=== PATIENT | female | born 1995 | race Two or more races ===

== ENCOUNTER 2025-02-03 14:59 | Outpatient (AMB) | payer MEDICAID, SELFPAY ==
--- NOTE | 2025-02-03 15:15 | AMB.OBINITIA ---
Vital Signs 02/03/25 15:20 Weight 90.378 kg Weight Measurement Method Standing Scale BP 117/70 Blood Pressure Source Automatic Cuff Blood Pressure Location Right Upper Arm Position Sitting Respiration 18 Pulse 87 Pulse Source Monitor Temp 98.0 F Temp Source Temporal Artery Scan Pulse Oximetry (%) 97 Oxygen Delivery Method Room Air Allergies/Home Meds Allergies & Medications Allergies No Known Allergies Allergy (Verified 02/03/25 15:25) Intake Visit Data Collection New Patient or Established: Established Patient (seen at [facility] within 3 years) Reason for Visit:: OB TRANSFER Seen by Clinical Staff ONLY (RN/MA): No District Medical Examiner Required: Yes District Medical Examiner's name/title: GRANT PAGE Do You Feel Safe at Home: Yes Authorities Contacted: N/A PCP or OBGYN visit in last 3 months: No Hx Now: Yes Are you currently on any form of Control: No Pain Present Currently: No Pain Scale Used: Mcgovern-Rowe/Numerical Pain scale:: 0 Smoking Status Smoking Status: Never smoker Questionnaires Covid-19 Vaccine Questionnaire Has patient been vacinated for Covid-19 Have you been vacinated for Covid-19: No PHQ-9 PHQ-2 Over the last 2 weeks, how often have you been bothered by any of the following problems? 1. Little interest or pleasure in doing things: not at all 2. Feeling down, depressed, or hopeless: not at all Total score: 0 PHQ-9 3. Trouble falling or staying asleep, or sleeping too much: Not at all 4. Feeling tired or having little energy: Not at all 5. Poor appetite or overeating: Not at all 6. Feeling bad about yourself - or that you are a failure or have let yourself or your family down: Not at all 7. Trouble concentrating on things, such as reading the newspaper or watching television: Not at all 8. Moving or speaking so slowly that other people could have noticed? - Or the opposite - being so fidgety or restless that you have been moving around a lot more than usual: not at all 9. Thoughts that you would be better off or of hurting yourself in some way: Not at all Total score: 0 If you checked off any problems, how difficult have these problems made it for you to do your work, take care of things at home, or get along with other people?: not difficult at all Source: Developed by Drs. Gian Rodgers, Mar Alexander, Hector Laurent and colleagues, with an educational eduardo from [employer]. 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 No CTX/LOF/VB, good FM. Hx prior CS, spinal surgery for lumbar disc pathology. Transferring care from [facility]. All prior records including 21w3d US from [facility] reviewed?no anomalies noted. FHR 136 bpm. Plan: Schedule repeat CS for ~03/14/25, confirm hospital date and inform pt at next visit. Follow-up in 2 weeks. Perform GBS swab at next visit. 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 Patient has a history of one previous section and spinal surgery for lumbar disc issues. Last menstrual period was 06/14/2024, with an estimated due date of 03/21/2025. A 21-week, 3-day ultrasound from [facility] was reviewed. heart rate auscultated at 136 bpm, which is within normal range. Patient denies any complications such as gestational diabetes. All records, labs, and ultrasounds have been reviewed and appear normal. Plan - Schedule for approximately March 14, 2025 (one week before due date) - Book exact date at hospital and inform patient at next visit - Follow-up appointment in 2 weeks - Perform culture swab at next appointment - Confirm and communicate dates at next appointment 1. Progress Reviewed gestational age, growth, and heart rate. Planned frequent visits (every 2 weeks until 36 weeks, then weekly). 2. Instructed patient to monitor movements and report decreases immediately. 3. Testing Counseled on routine third-trimester labs per guidelines. Discussed potential need for ultrasound or monitoring based on risk factors. 4. Preeclampsia Precaution Educated on preeclampsia signs: severe headache, vision changes, right upper quadrant pain, sudden swelling. Advised urgent reporting of symptoms and discussed blood pressure monitoring if high risk. 5. Labor Precautions Reviewed labor signs: regular contractions, pelvic pressure, back pain, bleeding, or fluid leakage. Instructed to seek immediate care for these symptoms. 6. Lifestyle and Delivery Preparation Reinforced vitamins, nutrition, and safe activity. Discussed plan, pain management, and . Advised on labor preparation (e.g., hospital bag) and expectations. 7. Psychosocial Support Assessed emotional well-being and offered resources for mental health or parenting support.
[2025-02-03 15:20] VITALS: BP 117/70; PULSE 87; RESP 18; TEMP 36.7; O2SAT 97
== END 2025-02-03 15:32 | disposition home or self-care (01) ==
LOC: HODSOBC 14:59
PROVIDERS: Supervising Provider Obstetrics & Gynecology; Visit Provider Obstetrics & Gynecology
DX: O09.293 Supervision of pregnancy with other poor reproductive or obstetric history, third trimester (principal); O34.219 Maternal care for unspecified type scar from previous cesarean delivery; Z3A.33 33 weeks gestation of pregnancy; Z98.890 Other specified postprocedural states
CPT/HCPCS: 99204; G0463

== ENCOUNTER 2025-02-23 10:36 | Outpatient (AMB) | payer MEDICAID, SELFPAY ==
[2025-02-23 10:52] VITALS: BP 113/70; PULSE 94; RESP 18; TEMP 36; O2SAT 97; BMI 27.5
--- NOTE | 2025-02-23 10:52 | AMB.OBVISIT ---
Vital Signs 02/23/25 10:52 Height 1.8 m Height Method Stated Weight 89.471 kg Weight Measurement Method Standing Scale BMI 27.5 BP 113/70 Blood Pressure Source Automatic Cuff Blood Pressure Location Left Upper Arm Position Sitting Respiration 18 Pulse 94 Pulse Source Monitor Temp 96.8 F Temp Source Oral Pulse Oximetry (%) 97 Oxygen Delivery Method Room Air Allergies/Home Meds Allergies & Medications Allergies No Known Allergies Allergy (Verified 03/16/25 11:01) Medication Reconciliation vitamin#30 30 mg iron-10 mg iron-folic acid 1 mg-omg3 capsule cap PO QDAY 03/16/25 [History] Intake Visit Data Collection New Patient or Established: Established Patient (seen at [facility] within 3 years) Reason for Visit:: CARE Consent obtained for Telemed Visit: No Seen by Clinical Staff ONLY (RN/MA): No Supervisor Cemetery Workers Required: Yes Supervisor Cemetery Workers's name/title: BG LAYTON Do You Feel Safe at Home: Yes Authorities Contacted: N/A PCP or OBGYN visit in last 3 months: Yes Hx Now: Yes Are you currently on any form of Control: No Pain Present Currently: No Pain Scale Used: Mcgovern-Rowe/Numerical Pain scale:: 0 Smoking Status Smoking Status: Never smoker Questionnaires Covid-19 Vaccine Questionnaire Has patient been vacinated for Covid-19 Have you been vacinated for Covid-19: Yes PHQ-9 PHQ-2 Over the last 2 weeks, how often have you been bothered by any of the following problems? 1. Little interest or pleasure in doing things: not at all 2. Feeling down, depressed, or hopeless: not at all Total score: 0 PHQ-9 3. Trouble falling or staying asleep, or sleeping too much: Not at all 4. Feeling tired or having little energy: Not at all 5. Poor appetite or overeating: Not at all 6. Feeling bad about yourself - or that you are a failure or have let yourself or your family down: Not at all 7. Trouble concentrating on things, such as reading the newspaper or watching television: Not at all 8. Moving or speaking so slowly that other people could have noticed? - Or the opposite - being so fidgety or restless that you have been moving around a lot more than usual: not at all 9. Thoughts that you would be better off or of hurting yourself in some way: Not at all Total score: 0 Source: Developed by Drs. Gian Rodgers, Mar Alexander, Hector Laurent and colleagues, with an educational eduardo from [employer]. 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 No CTX/LOF/VB, good FM. Hx prior CS, spinal surgery for lumbar disc pathology. Transferring care from [facility]. All prior records including 21w3d US from [facility] reviewed?no anomalies noted. FHR 136 bpm. Plan: Schedule repeat CS for ~03/14/25, confirm hospital date and inform pt at next visit. Follow-up in 2 weeks. Perform GBS swab at next visit. 02/23/25 <del>?</del> 36w 2d 89.471 kg 113/70 occasional cephalic 36 145 active Patient is 38 weeks , scheduled for on 03-16 (Sunday) at 39 weeks gestation. heart rate was noted to be 156 bpm, which is within normal range. Patient reports no contractions or other problems. movement is reported as active. A routine culture for Group B Streptococcus (GBS) was performed, which is standard procedure at this stage of . Plan - scheduled for 03-16 (Sunday) at 39 weeks gestation - Patient to register at 10:00 AM, procedure scheduled for 12:30 PM - Culture for the baby to be performed - Follow-up appointment scheduled in one week - Further instructions to be provided closer to the date YOON Calculator Estimated Delivery Date Method Current WG Current Estimate 03/21/25 LMP (Certain) 39w 2d Office Procedures OB Clinic LOC & Office Proc's Nursing/Assessment Patient Status: Established Patient OB Clinic Nursing Assessment: Medication Reconciliation, Update PMH in EMR and Vital Signs OB Clinic Coordination of Care: Complex Care and Chronic Disease 1-5, Consent,records obtained, informed consent, Education Simp Pt/Fam, 1 Ins Authorization, Lab and Imaging orders, Results/Orders obtained and Staff clarify orders Special Needs: Heart tones Miscellaneous Interventions: Culture Specimen Collection Established Patient Charge Established Patient Point Assignment: 165 Established Patient Point Charge: EP Level 5 (160-above) Assessment & Plan Diagnosis / Problem List (1) Maternal care for unspecified type scar from previous delivery: Status: Acute Plan Assessment Patient is 38 weeks , scheduled for on 03-16 (Sunday) at 39 weeks gestation. heart rate was noted to be 156 bpm, which is within normal range. Patient reports no contractions or other problems. movement is reported as active. A routine culture for Group B Streptococcus (GBS) was performed, which is standard procedure at this stage of . Plan - scheduled for 03-16 (Sunday) at 39 weeks gestation - Patient to register at 10:00 AM, procedure scheduled for 12:30 PM - Culture for the baby to be performed - Follow-up appointment scheduled in one week - Further instructions to be provided closer to the date
== END 2025-02-23 11:27 | disposition home or self-care (01) ==
LOC: HODSOBC 10:36
PROVIDERS: Supervising Provider Obstetrics & Gynecology; Visit Provider Obstetrics & Gynecology
DX: O09.293 Supervision of pregnancy with other poor reproductive or obstetric history, third trimester (principal); O34.219 Maternal care for unspecified type scar from previous cesarean delivery; Z3A.36 36 weeks gestation of pregnancy; Z36.85 Encounter for antenatal screening for Streptococcus B
CPT/HCPCS: 99215; G0463

== ENCOUNTER 2025-03-03 09:20 | Outpatient (AMB) | payer MEDICAID, SELFPAY ==
[2025-03-03 09:33] VITALS: BP 123/74; PULSE 89; RESP 18; TEMP 36.2; O2SAT 98; BMI 31.2
--- NOTE | 2025-03-03 09:33 | OBCLNT_ITS ---
Vital Signs 03/03/25 09:33 Height 1.7 m Height Method Stated Weight 90.435 kg Weight Measurement Method Standing Scale BMI 31.2 BP 123/74 Blood Pressure Source Automatic Cuff Blood Pressure Location Left Upper Arm Position Sitting Respiration 18 Pulse 89 Pulse Source Monitor Temp 97.2 F Temp Source Oral Pulse Oximetry (%) 98 Oxygen Delivery Method Room Air Allergies/Home Meds Allergies & Medications Allergies No Known Allergies Allergy (Verified 03/16/25 11:01) Medication Reconciliation vitamin#30 30 mg iron-10 mg iron-folic acid 1 mg-omg3 capsule cap PO QDAY 03/16/25 [History] Intake Visit Data Collection New Patient or Established: Established Patient (seen at [facility] within 3 years) Reason for Visit:: CARE Seen by Clinical Staff ONLY (RN/MA): No Bakery Sales Clerk Required: Yes Bakery Sales Clerk's name/title: BG LAYTON Do You Feel Safe at Home: Yes Authorities Contacted: N/A PCP or OBGYN visit in last 3 months: Yes Hx Now: Yes Are you currently on any form of Control: No Pain Present Currently: No Pain Scale Used: Mcgovern-Rowe/Numerical Pain scale:: 0 Smoking Status Smoking Status: Never smoker Questionnaires Covid-19 Vaccine Questionnaire Has patient been vacinated for Covid-19 Have you been vacinated for Covid-19: Yes PHQ-9 PHQ-2 Over the last 2 weeks, how often have you been bothered by any of the following problems? 1. Little interest or pleasure in doing things: not at all 2. Feeling down, depressed, or hopeless: not at all Total score: 0 PHQ-9 3. Trouble falling or staying asleep, or sleeping too much: Not at all 4. Feeling tired or having little energy: Not at all 5. Poor appetite or overeating: Not at all 6. Feeling bad about yourself - or that you are a failure or have let yourself or your family down: Not at all 7. Trouble concentrating on things, such as reading the newspaper or watching television: Not at all 8. Moving or speaking so slowly that other people could have noticed? - Or the opposite - being so fidgety or restless that you have been moving around a lot more than usual: not at all 9. Thoughts that you would be better off or of hurting yourself in some way: Not at all Total score: 0 Source: Developed by Drs. Gian Rodgers, Mar Alexander, Hector Laurent and colleagues, with an educational eduardo from [employer]. 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 No CTX/LOF/VB, good FM. Hx prior CS, spinal surgery for lumbar disc pathology. Transferring care from [facility]. All prior records including 21w3d US from [facility] reviewed?no anomalies noted. FHR 136 bpm. Plan: Schedule repeat CS for ~03/14/25, confirm hospital date and inform pt at next visit. Follow-up in 2 weeks. Perform GBS swab at next visit. 02/23/25 -?-?-?-?-?-?-?-?-?-?-?-?- 36w 2d 89.471 kg 113/70 occasional cephalic 36 145 active Patient is 38 weeks , scheduled for on 03-16 (Sunday) at 39 weeks gestation. heart rate was noted to be 156 bpm, which is within normal range. Patient reports no contractions or other problems. movement is reported as active. A routine culture for Group B Streptococcus (GBS) was performed, which is standard procedure at this stage of . Plan - scheduled for 03-16 (Sunday) at 39 weeks gestation - Patient to register at 10:00 AM, apple jonas scheduled for 12:30 PM - Culture for the baby to be performed - Follow-up appointment scheduled in one week - Further instructions to be provided cl oser to the date 03/03/25 -?-?-?-?-?-?-?-?-?-?-?-?- 37w 3d 90.435 kg 123/74 occasional cephalic 37 146 active 37-week routine visit. heart rate 146 bpm, within normal range. Patient reports no contractions or other issues. Patient inquired about [id number] syndrome exposure risk due to contact with an affected child; patient is asymptomatic. Group B Streptococcus (GBS) screening is due. - Follow-up appointment scheduled for 1 week - Group B Streptococcus (GBS) culture sw ab to be performed at next visit - Continue routine care YOON Calculator Estimated Delivery Date Method Current WG Current Estimate 03/21/25 LMP (Certain) 39w 2d Office Procedures OB Clinic LOC & Office Proc's Nursing/Assessment Patient Status: Established Patient OB Clinic Nursing Assessment: Medication Reconciliation, Update PMH in EMR and Vital Signs OB Clinic Coordination of Care: Complex Care and Chronic Disease 1-5, Consent,records obtained, informed consent, Education Simp Pt/Fam, 1 Ins Authorization, Lab and Imaging orders, Results/Orders obtained and Staff clarify orders Special Needs: Heart tones Established Patient Charge Established Patient Point Assignment: 150 Established Patient Point Charge: EP Level 4 (120-155) Assessment & Plan Diagnosis / Problem List (1) Maternal care for unspecified type scar from previous delivery: Status: Acute
== END 2025-03-03 09:44 | disposition home or self-care (01) ==
LOC: HODSOBC 09:20
PROVIDERS: Supervising Provider Obstetrics & Gynecology; Visit Provider Obstetrics & Gynecology
DX: O09.293 Supervision of pregnancy with other poor reproductive or obstetric history, third trimester (principal); O34.219 Maternal care for unspecified type scar from previous cesarean delivery; Z3A.37 37 weeks gestation of pregnancy
CPT/HCPCS: 99214; G0463

== ENCOUNTER 2025-03-13 09:56 | Outpatient (AMB) | payer MEDICAID, SELFPAY ==
[2025-03-13 10:07] VITALS: BP 109/70; PULSE 89; RESP 17; TEMP 36.4; O2SAT 96; BMI 31.7
--- NOTE | 2025-03-13 10:07 | OBCLNT_ITS ---
Vital Signs 03/13/25 10:07 Height 1.7 m Height Method Measured Weight 91.682 kg Weight Measurement Method Standing Scale BMI 31.7 BP 109/70 Blood Pressure Source Automatic Cuff Blood Pressure Location Right Upper Arm Position Sitting Respiration 17 Pulse 89 Pulse Source Monitor Temp 97.5 F Temp Source Temporal Artery Scan Pulse Oximetry (%) 96 Oxygen Delivery Method Room Air Allergies/Home Meds Allergies & Medications Allergies No Known Allergies Allergy (Verified 03/16/25 11:01) Medication Reconciliation vitamin#30 30 mg iron-10 mg iron-folic acid 1 mg-omg3 capsule cap PO QDAY 03/16/25 [History] Intake Visit Data Collection New Patient or Established: Established Patient (seen at [facility] within 3 years) Reason for Visit:: C Consent obtained for Telemed Visit: No Seen by Clinical Staff ONLY (RN/MA): No Beam House Inspector Required: No Do You Feel Safe at Home: Yes Authorities Contacted: N/A PCP or OBGYN visit in last 3 months: Yes Date of Last PCP or OBGYN visit: 03/03/25 Hx Now: Yes Are you currently on any form of Control: No Pain Present Currently: No Pain Scale Used: Mcgovern-Rowe/Numerical Pain scale:: 0 Smoking Status Smoking Status: Never smoker Questionnaires Covid-19 Vaccine Questionnaire Has patient been vacinated for Covid-19 Have you been vacinated for Covid-19: Yes PHQ-9 PHQ-2 Over the last 2 weeks, how often have you been bothered by any of the following problems? 1. Little interest or pleasure in doing things: not at all PHQ-9 3. Trouble falling or staying asleep, or sleeping too much: Not at all 4. Feeling tired or having little energy: Not at all 5. Poor appetite or overeating: Not at all 6. Feeling bad about yourself - or that you are a failure or have let yourself or your family down: Not at all 7. Trouble concentrating on things, such as reading the newspaper or watching television: Not at all 8. Moving or speaking so slowly that other people could have noticed? - Or the opposite - being so fidgety or restless that you have been moving around a lot more than usual: not at all 9. Thoughts that you would be better off or of hurting yourself in some way: Not at all If you checked off any problems, how difficult have these problems made it for you to do your work, take care of things at home, or get along with other people?: not difficult at all Source: Developed by Drs. Gian Rodgers, Mar Alexander, Hector Laurent and colleagues, with an educational eduardo from [employer]. 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 No CTX/LOF/VB, good FM. Hx prior CS, spinal surgery for lumbar disc pathology. Transferring care from [facility]. All prior records including 21w3d US from [facility] reviewed?no anomalies noted. FHR 136 bpm. Plan: Schedule repeat CS for ~03/14/25, confirm hospital date and inform pt at next visit. Follow-up in 2 weeks. Perform GBS swab at next visit. 02/23/25 -?-?-?-?-?-?-?-?-?-?-?-?- 36w 2d 89.471 kg 113/70 occasional cephalic 36 145 active Patient is 38 weeks , scheduled for on 03-16 (Sunday) at 39 weeks gestation. heart rate was noted to be 156 bpm, which is within normal range. Patient reports no contractions or other problems. movement is reported as active. A routine culture for Group B Streptococcus (GBS) was performed, which is standard procedure at this stage of . Plan - scheduled for 03-16 (Sunday) at 39 weeks gestation - Patient to register at 10:00 AM, proce dure scheduled for 12:30 PM - Culture for the baby to be performed - Follow-up appointment scheduled in one week - Further instructions to be provided cl oser to the date 03/03/25 -?-?-?-?-?-?-?-?-?-?-?-?- 37w 3d 90.435 kg 123/74 occasional cephalic 37 146 active 37-week routine visit. heart rate 146 bpm, within normal range. Patient reports no contractions or other issues. Patient inquired about yvei-buin-vbbkb syndrome exposure risk due to contact with an affected child; patient is asymptomatic. Group B Streptococcus (GBS) screening is due. - Follow-up appointment scheduled for 1 week - Group B Streptococcus (GBS) culture sw ab to be performed at next visit - Continue routine care 03/13/25 -?-?-?-?-?-?-?-?-?-?-?-?- 38w 6d 91.682 kg 109/70 occasional cephalic 39 162 active Patient is scheduled for a on March 16 at 12:30 PM. No contractions reported. heart rate is 162 bpm, which is within normal range. Patient appears stable and prepared for the upcoming procedure. - Scheduled on March 16 - Patient to check into hospital at 10:0 0 AM - No food or drink after midnight (8 zoe rs before procedure) - [facility] and inform desk staff about C- section - Procedure scheduled for 12:30 PM - No further appointments at the clinic; next encounter will be at the hospital - Patient advised to come to hospital if experiencing painful contractions before scheduled date YOON Calculator Estimated Delivery Date Method Current WG Current Estimate 03/21/25 LMP (Certain) 39w 2d Office Procedures OB Clinic LOC & Office Proc's Nursing/Assessment Patient Status: Established Patient OB Clinic Nursing Assessment: Medication Reconciliation, Update PMH in EMR and Vital Signs OB Clinic Coordination of Care: Complex Care and Chronic Disease 1-5 and Consent,records obtained, informed consent Special Needs: Heart tones Established Patient Charge Established Patient Point Assignment: 90 Established Patient Point Charge: EP Level 3 (80-115) Assessment & Plan Diagnosis / Problem List (1) Maternal care for unspecified type scar from previous delivery: Status: Acute (2) Supervision of high risk , unspecified, third trimester: Status: Acute
== END 2025-03-13 10:54 | disposition home or self-care (01) ==
LOC: HODSOBC 09:56
PROVIDERS: Supervising Provider Obstetrics & Gynecology; Visit Provider Obstetrics & Gynecology
DX: O09.293 Supervision of pregnancy with other poor reproductive or obstetric history, third trimester (principal); O34.219 Maternal care for unspecified type scar from previous cesarean delivery; Z3A.38 38 weeks gestation of pregnancy
CPT/HCPCS: 99213; G0463

== ENCOUNTER 2025-03-16 10:17 | Inpatient (IN) | payer MEDICAID, SELFPAY ==
[2025-03-16] VITALS (49 sets, daily range): BP systolic 0–129; BP diastolic 0–78; PULSE 69–90; RESP 12–24; TEMP 36.6–36.8; O2SAT 93–99; BMI 31.4
[2025-03-16 11:38] LABS: Basophils # (Auto) 0.0 Thou/mm3 (0.0-0.2); Basophils % (Auto) 0 % (0-2.5); Eosinophils # (Auto) 0.0 Thou/mm3 (0.0-0.5); Eosinophils % (Auto) 0 % (0-10); Hematocrit 39.9 % (36.0-46.0); Hemoglobin 13.9 g/dL (12.0-16.0); Immature Granulocytes Auto 0.08 Thou/mm3 (0.00-0.00); Lymphocytes # (Auto) 1.4 Thou/mm3 (1.0-4.8); Lymphocytes % (Auto) 15 % (10-50); Mean Corpuscular HGB Conc 34.8 g/dl (31.0-37.0); Mean Corpuscular Hemoglobin 29.7 pg (25.0-35.0); Mean Corpuscular Volume 85 fL (80-100); Monocytes # (Auto) 0.5 Thou/mm3 (0.0-0.8); Monocytes % (Auto) 6 % (0-12); Neutrophils # (Auto) 7.0 Thou/mm3 (1.8-7.7); Neutrophils % (Auto) 78 % (37-80); Nucleated Red Blood Cell # 0.00 Thou/mm3 (0.00-0.00); Nucleated Red Blood Cell % 0 /100 WBC (0); Platelet Count 190 Thou/mm3 (140-440); RDW Standard Deviation 42.3 fL (36.4-46.3); Red Blood Count 4.68 Miln/mm3 (4.00-5.20); White Blood Count 9.0 Thou/mm3 (3.6-11.0)
[2025-03-16 12:13] LABS: Syphilis Nonreactive (Nonreactive)
--- NOTE | 2025-03-16 12:27 | ESHP_ITS ---
Documentation for date of: 03/16/25 OB Labor/Induct. HPI History of Present Illness Chief complaint: Repeat : 2 Para: 1 History of sections: Yes (2021) Date of last menstrual period: 06/14/24 YOON: 03/21/25 Gestational age based on last menstrual period: 39 History of present illness: Donna Suazo is a 29-year-old [id number] at 39 weeks and 2 days gestation, presenting for scheduled repeat . Her estimated due date is March 21, 2025, based on her last menstrual period of June 14, 2024. She has a history of one previous in 2021 and spinal surgery for a herniated lumbar disc. Ms. Suazo transferred her care to this practice from [facility]. Her records have been reviewed. On presentation today, she reports no complaints and adequate movements. The patient is being admitted for her planned repeat . Medical History: - Herniated lumbar disc requiring spinal surgery Surgical History: - in 2021 - Spinal surgery for herniated lumbar disc Obstetric History: - GPAL: G2 T1 L1 Labs Labs: Positive: Rubella Titre, Negative: RPR, Hepatitis B, HIV and Group Beta Strep and Unknown: Chlamydia, Gonorrhea, Herpes Type 1, Herpes Type 2 and Covid-19 Past Medical History Surgical History SURGICAL: Positive Section (2021) Meds Home Medications and Allergies Home Medications ?Medication ?Instructions ?Recorded ?Confirmed ?Type vitamin#30 30 mg iron-10 cap PO QDAY 03/16/25 History mg iron-folic acid 1 mg-omg3 capsule Allergies Allergy/AdvReac Type Severity Reaction Status Date / Time No Known Allergies Allergy Verified 03/16/25 11:01 OB Exam Physical Exam Vital signs: Pulse BP Pulse Ox 82 115/68 98 03/16/25 12:25 03/16/25 12:25 03/16/25 12:26 Constitutional Constitutional: no acute distress Routine HEENT Exam Head: Present normocephalic and atraumatic Eye: Present EOMI and PERRL ENT: Present mucous membranes moist Routine Neck Exam Neck: Present supple and trachea midline Routine Cardiovascular Exam Cardiovascular: Present RRR Routine Abdominal Exam Abdominal: Present soft and normoactive bowel sounds Detailed Labor and Delivery Exam Dilation (cm): 0 Baseline heart rate: 140 monitor accelerations: 15x15 monitor decelerations: None Routine Extremities Exam Extremities: Present full ROM Routine Skin Exam Skin: Present intact, dry and warm Routine Neurological Exam Neurological: Present alert, oriented X3 and CN II-XII intact Routine Psychiatric Exam Psychiatric: Present normal affect and normal thought process OB Results Labs 03/16/25 10:50 Labs: Short CBC 03/16/25 Range/Units 10:50 WBC 9.0 (3.6-11.0) Thou/mm3 Hgb 13.9 (12.0-16.0) g/dL Hct 39.9 (36.0-46.0) % Plt Count 190 (140-440) Thou/mm3 OB Assessment & Plan Assessment and Plan (1) Maternal care for unspecified type scar from previous delivery: Status: Acute Assessment and plan: Repeat Section Assessment: Patient is a 29-year-old at 39 weeks 2 days gestation based on LMP of 06/14/2024, with an YOON of 03/21/2025. She has a history of one previous in 2021 and spinal surgery for a herniated lumbar disc. The patient reports adequate movements and has no current complaints. Given her obstetrical history and current gestational age, a repeat is indicated. Plan: - Admit to inpatient status for repeat - Initiate LR at 125 cc/hr - Order pre-operative labs: CBC, Type and Screen, RPR - Administer pre-op medications: Pepcid, Bicitra, and Ancef - Perform repeat low transverse under planned spinal anesthesia - Implement continuous monitoring until - Informed consent for the procedure reviewed with the patient (2) Supervision of high risk , unspecified, third trimester: Status: Acute
[2025-03-16] MEDS: ceFAZolin/D5W 2 GM IV 2 GM/100 ML BAG IV (12:42)
[2025-03-16] MEDS: METOCLOPRAMIDE INJ 5 MG/ML VIAL 2 ML 10 MG IVP (12:42)
[2025-03-16] MEDS: RINGERS LACTATED 1000 ML 1,000 ML 100 ML IV (12:42)
[2025-03-16] MEDS: FAMOTIDINE INJ 10 MG/ML VIAL 2 ML 20 MG IV (12:42)
--- NOTE | 2025-03-16 12:52 | PD.GYNPROC ---
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 The patient was brought to the operating room and identified with two patient identifiers. She was placed in the supine position, and spinal anesthesia was administered. After confirming adequate anesthesia, the abdomen and perineum were prepped and draped in the usual sterile fashion. A Braxton catheter was inserted for continuous bladder drainage. A low transverse (Pfannenstiel) skin incision was made using a scalpel and carried through subcutaneous tissue to the rectus fascia. The previous scar was identified and excised in its entirety. The fascia was incised transversely and dissected off the rectus muscles both superiorly and inferiorly. The rectus bellies were in the midline, and the peritoneum was entered bluntly with the surgeon?s finger. The peritoneal opening was extended to allow adequate exposure. An Ian O-ring retractor was placed for optimal visualization. Upon entering the abdominal cavity, extensive adhesions were noted between the uterus, omentum, and surrounding peritoneal structures. These were carefully lysed using sharp and blunt dissection. Significant oozing was noted from the adhesiolysis sites, which required meticulous hemostasis with electrocautery and irrigation. The lower uterine segment was palpated, and the bladder flap was reflected inferiorly. A low transverse uterine incision (Kal Cárdenas) was made with a scalpel and extended bluntly. The amniotic membranes were ruptured, and clear fluid was released. The fetus was in vertex presentation. A Mityvac vacuum device was applied to the head. Vacuum-assisted delivery was accomplished without any pop-offs. A single loop of nuchal cord was noted and reduced. The shoulders and body were delivered smoothly with gentle fundal pressure. The umbilical cord was doubly clamped and cut, and the infant was handed to the awaiting team. Cord gases were obtained. The placenta was delivered with gentle traction on the cord. The uterine cavity was cleared of membranes and clots. The hysterotomy angles were secured with Allis clamps. Persistent bleeding was noted from the left uterine artery. Hemostasis was achieved with placement of compression sutures using 0 Vicryl. The uterine incision was closed in two layers using #1 Monocryl: the first layer was a running locked suture to approximate the myometrium, and the second layer imbricated the serosa and myometrium. Hemostasis was confirmed. The Ian retractor was removed. Peritoneal edges and rectus muscles were reapproximated. Rectus fascia was closed with running 0 Vicryl. The subcutaneous tissue was irrigated with warm saline, and bleeding points were cauterized using Bovie electrocautery. Subcutaneous tissue was approximated with 3-0 Vicryl. The skin was closed using- Monocryl in a subcuticular fashion. A sterile dressing was applied. The patient was cleaned, undraped, and transferred to the recovery room in stable and awake condition. She tolerated the procedure well. All counts were correct ?2. Estimated blood loss (ml): 700 Complications: none Surgical staff Operation Date: 03/16/25 12:45 <No data on this case meets the specified criteria> Diagnosis Discharge Diagnosis (1) Maternal care for unspecified type scar from previous delivery: Status: Acute Problem List Completed Was Problem List Reviewed/Reconciled?: Yes
--- NOTE | 2025-03-16 13:51 | OBDSUM_ITS ---
Data (Gooden) Data Hx Section: Yes (2021) : 3 Delivery Data (Gooden) Labor Data Induction/Augmentation Agent: None ROM date: 03/16/25 ROM time: 12:45 Amniotic membrane rupture type: Spontaneous Amniotic fluid description: Clear Delivery Data Onset of labor date: 03/16/25 Onset of labor time: 13:17 Complete dilation date: 03/16/25 Complete dilation time: 13:17 delivery date: 03/16/25 delivery time: 13:17 Placenta delivery date: 03/16/25 Placenta delivery time: 13:18 Stage 1 total time: Labor - Stage 1 Duration 0 minutes Delivered by: Micheal Delivery nurse: [email or web address] [place] nurse: [email or web address] Telemarketing Supervisor at delivery: No Support person(s) at delivery: FOB Other staff at delivery: REEMA Ortiz CRNA Delivery Method Delivery method: Low Transverse Presentation: Vertex Anesthesia Type Anesthesia Type: Spinal Anesthesia type: Spinal Placenta Placenta delivery description: Manual Removal Cord blood sent to lab: Yes cord blood collection: Cord Blood Type Episiotomy Episiotomy description: None Umbilical Cord cord description: 3 Vessels [place] Data (Gooden) Data order: 1 [place]'s gender: Male Identification band number: [id number] weight (gms): 4460 g Weight (pounds): 9 lbs and 13.3 ozs [place] length: 57.15 cm 1 minute: 8 5 minutes: 9
[2025-03-16 16:13] LABS: Chlamydia trachomatis PCR Negative (Not Detect); Neisseria Gonorrhoeae DNA PCR Negative (Not Detect); Trichomonas Negative (Negative)
[2025-03-16] MEDS: OXYTOCIN in NS 20 units 20 UNIT/1,000 ML BAG 125 UNIT IV (18:05)
[2025-03-17] MEDS: HYDROcodone/APAP 5/325 TABLET 2 TAB PO ×2 (00:41→17:50)
[2025-03-17] MEDS: RINGERS LACTATED 1000 ML 1,000 ML 125 ML IV (02:44)
[2025-03-17 04:00] VITALS: BP 103/60; PULSE 66; RESP 18; TEMP 37.2; O2SAT 96
[2025-03-17 06:30] LABS: Basophils # (Auto) 0.0 Thou/mm3 (0.0-0.2); Basophils % (Auto) 0 % (0-2.5); Eosinophils # (Auto) 0.0 Thou/mm3 (0.0-0.5); Eosinophils % (Auto) 0 % (0-10); Hematocrit 35.6 % (36.0-46.0); Hemoglobin 11.9 g/dL (12.0-16.0); Immature Granulocytes Auto 0.07 Thou/mm3 (0.00-0.00); Lymphocytes # (Auto) 1.6 Thou/mm3 (1.0-4.8); Lymphocytes % (Auto) 15 % (10-50); Mean Corpuscular HGB Conc 33.4 g/dl (31.0-37.0); Mean Corpuscular Hemoglobin 29.2 pg (25.0-35.0); Mean Corpuscular Volume 87 fL (80-100); Monocytes # (Auto) 0.8 Thou/mm3 (0.0-0.8); Monocytes % (Auto) 8 % (0-12); Neutrophils # (Auto) 8.7 Thou/mm3 (1.8-7.7); Neutrophils % (Auto) 77 % (37-80); Nucleated Red Blood Cell # 0.00 Thou/mm3 (0.00-0.00); Nucleated Red Blood Cell % 0 /100 WBC (0); Platelet Count 181 Thou/mm3 (140-440); RDW Standard Deviation 43.1 fL (36.4-46.3); Red Blood Count 4.08 Miln/mm3 (4.00-5.20); White Blood Count 11.3 Thou/mm3 (3.6-11.0)
[2025-03-17] MEDS: KETOROLAC INJ 30 MG/ML VIAL IVP (08:07)
[2025-03-17] MEDS: SIMETHICONE 80 MG CHEW PO (08:07)
[2025-03-17] MEDS: DOCUSATE SOD 100 MG CAPSULE PO (08:07)
[2025-03-17] MEDS: Milk Of Magnesia Susp 30 ML UDC PO (08:07)
[2025-03-17 08:20] VITALS: BP 98/58; PULSE 68; RESP 18; TEMP 36.8; O2SAT 99
--- NOTE | 2025-03-17 10:48 | PD.LDPPPRG ---
Subjective Subjective Interval history: Delivery type: Patient doing well this morning. No acute complaints. Ambulating, tolerating p.o. and voiding without difficulty. HTN/Pre-Eclampsia screen: No chest pain, shortness of breath, headache, visual changes, epigastric or right upper quadrant pain. Breast-feeding, lochia diminishing. Bowel: Flatus+/ BM+ Exam Vital Signs Temp Pulse Resp BP Pulse Ox O2 Del Method 98.3 F 68 18 98/58 L 99 Room Air 03/17/25 08:20 03/17/25 08:20 03/17/25 08:20 03/17/25 08:20 03/17/25 08:20 03/17/25 08:20 Constitutional Constitutional: no acute distress Routine HEENT Exam Head: Present normocephalic and atraumatic Eye: Present EOMI and PERRL ENT: Present mucous membranes moist Routine Neck Exam Neck: Present supple and trachea midline Routine Respiratory Exam Respiratory: Present chest non-tender, lungs clear, normal breath sounds and no resp distress Routine Cardiovascular Exam Cardiovascular: Present RRR Routine Abdominal Exam Abdominal: Present soft and normoactive bowel sounds Routine Extremities Exam Extremities: Present full ROM Routine Skin Exam Skin: Present intact, dry and warm Routine Neurological Exam Neurological: Present alert, oriented X3 and CN II-XII intact Routine Psychiatric Exam Psychiatric: Present normal affect and normal thought process Objective Labs 03/17/25 05:20 Labs: Laboratory Results - last 24 hr 03/16/25 03/16/25 03/17/25 10:50 11:59 05:20 WBC 9.0 11.3 H RBC 4.68 4.08 Hgb 13.9 11.9 L D Hct 39.9 35.6 L MCV 85 87 MCH 29.7 29.2 MCHC 34.8 33.4 RDW Std Deviation 42.3 43.1 Plt Count 190 181 Neut % (Auto) 78 77 Lymph % (Auto) 15 15 [place] % (Auto) 6 8 Eos % (Auto) 0 0 Baso % (Auto) 0 0 Neut # (Auto) 7.0 8.7 H Lymph # (Auto) 1.4 1.6 [place] # (Auto) 0.5 0.8 Eos # (Auto) 0.0 0.0 Baso # (Auto) 0.0 0.0 Immature Gran # (Auto) 0.08 H 0.07 H Absolute Nucleated RBC 0.00 0.00 Immature Gran % 1 H 1 H Nucleated RBC % 0 0 Syphilis Serology Nonreactive Chlam trachomat DNA PCR Negative N.gonorrhoeae DNA (PCR) Negative Trichomonas DNA Probe Negative Blood Type O Positive Antibody Screen NEGATIVE Blood Bank Wristband ID Yes Assessment & Plan Problem List (1) Maternal care for unspecified type scar from previous delivery: Status: Acute Assessment and plan: 1. Continue routine /post-op care 2. Labs reviewed, cbc appropriate 3. Remove dressing/Braxton 4. Encourage to ambulate, shower 5. Encourage PO intake, breast feeding Time Spent With Patient Time: Total time spent is greater than 50% in coordination of care (as documented) at patient's floor/unit and/or counseling patient:
[2025-03-17 12:00] VITALS: BP 102/61; PULSE 68; RESP 18; TEMP 37.2; O2SAT 98
[2025-03-17 20:00] VITALS: BP 97/60; PULSE 84; RESP 16; TEMP 36.8; O2SAT 97
[2025-03-17] MEDS: IBUPROFEN TAB 400 MG TABLET 800 MG PO (23:26)
[2025-03-18 04:00] VITALS: BP 116/72; PULSE 72; RESP 16; TEMP 37.1; O2SAT 99
[2025-03-18 07:25] VITALS: BP 103/64; PULSE 75; RESP 18; TEMP 36.7; O2SAT 98
[2025-03-18] MEDS: DOCUSATE SOD 100 MG CAPSULE PO (07:29)
[2025-03-18] MEDS: HYDROcodone/APAP 5/325 TABLET 1 TAB PO ×2 (07:29→13:05)
[2025-03-18] MEDS: IBUPROFEN TAB 400 MG TABLET 800 MG PO (10:20)
--- NOTE | 2025-03-18 10:32 | CHAP ---
Patient was visited by a Spiritual Care Volunteer on 03/17/2025 between 0900 and 1140 and received comfort, encouragement and/or prayer. Patient also received a blessing on infant and family.
--- NOTE | 2025-03-18 12:39 | ESPR_ITS ---
Subjective Subjective Interval history: The patient is a 29-year-old G2 now P2002 status post repeat x [address] Burton. She is postop day 2 today. She is doing quite well. She delivered 03/16 at 1317. Of note she is [place]-speaking only and her entire history and physical exam is obtained with a mortgage loan underwriter on the mortgage loan underwriter service line. Today patient is resting comfortably she is breast and bottlefeeding she denies heavy bleeding she is voiding tolerating a general diet passing flatus and ambulating. She is ready for discharge. Predelivery hemoglobin 13.9 postdelivery hemoglobin 11.9. Exam Vital Signs Temp Pulse Resp BP Pulse Ox O2 Del Method 98.0 F 75 18 103/64 98 Room Air 03/18/25 07:25 03/18/25 07:25 03/18/25 07:25 03/18/25 07:25 03/18/25 07:25 03/18/25 07:25 Narrative Exam Patient is alert and oriented x 3 in no apparent distress. Fundus is firm at umbilicus incision is clean dry and intact extremities show no significant edema or erythema. Objective Labs 03/17/25 05:20 Assessment & Plan Problem List (1) care following delivery: Problem details: The patient was instructed no heavy lifting, intercourse, tampons or douching for 6 weeks. No heavy exercise x 6 weeks. Follow-up with Dr. Burton in 1 to 2 weeks. Status: Acute Time Spent With Patient Time: Total time spent is greater than 50% in coordination of care (as documented) at patient's floor/unit and/or counseling patient: Time with patient: less than 15 minutes
--- NOTE | 2025-03-18 12:43 | PD.LDDS ---
DS: Providers Provider Date of admission: 03/16/25 10:17 Primary care physician: Maulik Richardson MD Admitting Provider: Óscar Burton MD Attending Provider on Admission: Óscar Burton MD Consults: 03/16/25 13:46 Referral Routine Comment: Attending Provider on DC: Nubia Malagon MD ([facility]) Discharging Provider: Nubia Malagon MD ([facility]) Anticipated date of discharge: 03/18/25 DS: Diagnosis Discharge Diagnosis (1) care following delivery: Status: Acute Assessment & Plan: Discharge instructions given including no heavy lifting intercourse tampons douching or heavy exercise x 6 weeks. Follow-up with Dr. Burton in 1 to 2 weeks. Follow-up with Dr. Angelo in 4 weeks after that. Problem List Completed Was Problem List Reviewed/Reconciled?: Yes Summary/Hosp Course Brief History: Donna Suazo is a 29-year-old [id number] at 39 weeks and 2 days gestation, presenting for scheduled repeat . Her estimated due date is March 21, 2025, based on her last menstrual period of June 14, 2024. She has a history of one previous in 2021 and spinal surgery for a herniated lumbar disc. Ms. Suazo transferred her care to this practice from [facility]. Her records have been reviewed. On presentation today, she reports no complaints and adequate movements. The patient is being admitted for her planned repeat . Medical History: - Herniated lumbar disc requiring spinal surgery Surgical History: - in 2021 - Spinal surgery for herniated lumbar disc Obstetric History: - GPAL: G2 T1 L1 The patient was admitted by Dr. Burton. Please see H&P for further details. She underwent an uncomplicated repeat by Dr. Burton 03/16 around 1317 in the afternoon. Please see op report for further details. The patient had an uncomplicated postoperative course. She went home postoperative day #2 in stable condition. Her predelivery hemoglobin was 13.9. Her post delivery hemoglobin is 11.9. Her vital signs were stable. Peripartum Data Delivery Method: Low Transverse Episiotomy Description: None Procedures: Procedures Operation Date: 03/16/25 12:45 Actual Procedure Side Surgeon p in OB Óscar Burton MD complications: none Status at Discharge Cognitive/behavioral status at discharge: Patient is alert and oriented x 3 in no apparent distress. Fundus is firm nontender at umbilicus incision clean dry and intact extremities show no cyanosis clubbing or edema Functional status at discharge: independent ambulation Overall status at discharge: patient is progressing back to baseline Time Spent with Patient Time attestation: Total time spent providing and/or coordinating discharge services: Time spent: Less than 30 minutes Specific discharge activities: Pelvic rest x 6 weeks. No heavy lifting intercourse tampons douching x 6 weeks. No heavy exercise x 6 weeks Exam Vital Signs Temp Pulse Resp BP Pulse Ox O2 Del Method 98.0 F 75 18 103/64 98 Room Air 03/18/25 07:25 03/18/25 07:25 03/18/25 07:25 03/18/25 07:25 03/18/25 07:25 03/18/25 07:25 Narrative Exam Patient is alert and oriented x 3 in no apparent distress fundus is firm nontender extremities show no cyanosis, edema Discharge Plan Plan Patient Disposition: HOME (Self Care) Disposition Comment: Stable Patient condition on transfer: Stable Prescriptions/Referrals Prescriptions/Med Rec: New acetaminophen 325 mg Tablet 650 mg PO Q6HR PRN (Reason: Patient rated pain of 3) Qty: 60 0RF hydrocodone-acetaminophen 5-325 mg Tablet 2 tab PO Q6HR MDD 5 PRN (Reason: Patient rated pain 9 to 10) Qty: 20 0RF ibuprofen 400 mg Tablet 800 mg PO Q8HR PRN (Reason: Pain Scale 4-6 (Moderate) Qty: 60 0RF docusate sodium 100 mg Capsule 100 mg PO QDAY Qty: 60 0RF Continued PNV [id number] 30 mg iron-10 mg iron-1 mg capsule PO QDAY Referrals: Maulik Richardson MD [Primary Care Provider] - Patient/Caregiver Discharge Instructions Discharge Activity: activity as tolerated Other Discharge Activity Instructions:: Pelvic rest x 6 weeks no intercourse tampons douching intercourse x 6 weeks no heavy exercise x 6 weeks Other Discharge Diet Instructions: General Diet as tolerated Education Materials: : Caring for Yourself, C Section Dc, Change Expect Parents Print Language: [place] Activity Restrictions/Additional Instructions: Call with any heavy bleeding fevers chills or depression., Stand Alone Forms: Rain Award Info., Patient Portal Info Letter Discharge Order Discharge Orders: Discharge (Routine); Ordered 03/18/25 Ordered By: Nubia Malagon ([facility]) Planned Discharge Date 03/18/25
== END 2025-03-18 13:15 | disposition home or self-care (01) | DRG 540 ==
LOC: S4SX 13:19 → S4NX 13:20
PROVIDERS: Admitting Provider Obstetrics & Gynecology; PCP Family Medicine; Visit Provider Obstetrics & Gynecology
PROC: 10D00Z1 Extraction of Products of Conception, Low, Open Approach (ICD-10-PCS; CPT 59514; principal; 2025-03-16 12:30)
DX: O34.211 Maternal care for low transverse scar from previous cesarean delivery (principal); O69.81X0 Labor and delivery complicated by cord around neck, without compression, not applicable or unspecified; Z37.0 Single live birth; Z3A.39 39 weeks gestation of pregnancy; K66.0 Peritoneal adhesions (postprocedural) (postinfection); N99.4 Postprocedural pelvic peritoneal adhesions
CPT/HCPCS: 36415; 85025; 86780; 86850; 86900; 86901; 87491; 87591; 87661; A4314; A4649; J0689; J1100; J1885; J2274; J2371; J2405; J2590; J2765; J3010; J3490; J7120; A9270; J2270